=== PATIENT | female | born 1995 | race Caucasian/White ===

== ENCOUNTER 2020-07-19 14:12 | Emergency (ER) | payer OTHER ==
[2020-07-19 14:26] VITALS: BP 141/68
--- NOTE | 2020-07-19 14:58 | ED Physician Documentation ---
PD HPI UPPER EXT INJURY - Stated complaint Stated Complaint: R WRIST INJ - Chief complaint Chief Complaint: Trauma Ext - History obtained from History obtained from: Patient - Additonal information Additional information: She had a trip and fall on outstretched wrist at work just prior to arrival injuring the right wrist. No other injuries. Pain was moderate, now mild after Aleve prior to arrival. Review of Systems Constitutional: reports: Reviewed and negative Ears: reports: Reviewed and negative Cardiac: reports: Reviewed and negative Respiratory: reports: Reviewed and negative PD PAST MEDICAL HISTORY - Past Medical History Past Medical History: Yes Cardiovascular: None Respiratory: None Endocrine/Autoimmune: None GI: None PRESSER FIRST: None : None HEENT: None Psych: ADD/ADHD, Other Musculoskeletal: None Derm: None - Past Surgical History Past Surgical History: No - Present Medications Home Medications: Ambulatory Orders Medication Instructions Recorded Confirmed Control Pills 1 tab PO DAILY 05/22/16 - Allergies Allergies/Adverse Reactions: Allergies Allergy/AdvReac Type Severity Reaction Status Date / Time No Known Drug Allergies Allergy Verified 07/19/20 14:26 - Social History Does the pt smoke?: Yes Smoking Status: Current every day smoker Does the pt drink ETOH?: No Does the pt have substance abuse?: Yes - Immunizations Immunizations are current?: Yes - POLST Patient has POLST: No PD ED PE NORMAL - Vitals Vital signs reviewed: Yes - General General: Alert and oriented X 3, No acute distress - HEENT HEENT: PERRL, EOMI - Neck Neck: Supple, no meningeal sign, No bony TTP - Derm Derm: Normal color, Warm and dry - Extremities Extremities: Other (Mild tenderness to palpation about the dorsal wrist. Not the snuffbox. Maintain range of motion. No hand or elbow tenderness.) - Neuro Neuro: Alert and oriented X 3, Normal speech - Psych Psych: Normal mood, Normal affect Results - Vitals Vitals: Vital Signs - 24 hr 07/19/20 14:22 Temperature 37.1 C Heart Rate 96 Respiratory 18 Rate Blood Pressure 141/68 H O2 Saturation 97 Oxygen O2 Source Room air - Rads (name of study) 4 view x-ray of the right wrist Radiology: EMP read contemporaneously (normal) Departure - Departure Disposition: 01 Home, Self Care Clinical Impression: Right wrist sprain Qualifiers: Encounter type: initial encounter Qualified Code(s): S63.501A - Unspecified sprain of right wrist, initial encounter Condition: Good Record reviewed to determine appropriate education?: Yes Instructions: ED Sprain Wrist Comments: Continue Aleve as needed for pain, return if worse. Follow-up with your doctor in a week if not better. Forms: Activity restrictions
--- NOTE | 2020-07-19 15:17 | XRAY Report ---
PROCEDURE: Wrist 4 View RT INDICATIONS: wrist inj TECHNIQUE: 4 views of the wrist were acquired. COMPARISON: None FINDINGS: Bones: No fractures or dislocations. No suspicious bony lesions. Scaphoid view: No visualized fracture Soft tissues: No suspicious soft tissue calcifications. IMPRESSION: No visualized acute fracture or dislocation. However, occult injury cannot be excluded. Recommend zia rt interval imaging follow-up in 7-10 days as clinically indicated for additional evaluation. Reviewed by: Amina De La Paz MD on 07/19/2020 3:16 PM PDT Approved by: Amina De La Paz MD on 07/19/2020 3:16 PM PDT Station ID: [id number]
== END 2020-07-19 15:54 | disposition home or self-care (01) ==
LOC: ED 14:12
DX: S63.501A Unspecified sprain of right wrist, initial encounter (principal); W01.0XXA Fall on same level from slipping, tripping and stumbling without subsequent striking against object, initial encounter; Y99.0 Civilian activity done for income or pay; F17.200 Nicotine dependence, unspecified, uncomplicated
CPT/HCPCS: 99282; 99283

== ENCOUNTER 2022-05-02 15:55 | Outpatient (CLI) | payer OTHER ==
--- NOTE | 2022-05-02 16:40 | XRAY Report ---
PROCEDURE: Foot 3 View BILAT INDICATIONS: BILAT FOOT PAIN TECHNIQUE: 3 views of the bilateral feet COMPARISON: None. FINDINGS: No joint space narrowing, subchondral sclerosis, subchondral cystic change, or marginal osteophytosis . No periarticular erosions or lucencies. No periarticular soft tissue masses. No other features of s ignificant arthritic or degenerative process. Mild hammertoe deformities of the fourth and fifth digi ts bilaterally. No acute fracture or dislocation. No significant soft tissue abnormality. IMPRESSION: Essentially unremarkable exam with no evidence of arthritic process or significant degenerative an es. Reviewed by: Alberto Huerta MD on 05/02/2022 4:38 PM PDT Approved by: Alberto Huerta MD on 05/02/2022 4:38 PM PDT Station ID: [id number]
== END 2022-05-02 15:56 | disposition home or self-care (01) ==
LOC: DI 15:55
PROVIDERS: ATTEND Podiatrist
DX: M79.671 Pain in right foot (principal); M79.672 Pain in left foot

== ENCOUNTER 2023-06-12 12:55 | Outpatient (CLI) | payer OTHER ==
--- NOTE | 2023-06-12 13:40 | Sleep Patient Instructions ---
Sleep Center Visit Summary - Patient Visit Information Reason for Visit: Initial consult for evaluation of sleep disordered breathing and other sleep issues. - Patient Instructions Instructions Attached: Sleep Study Home Monitor Additional Instructions: You will be completing a sleep study, either an in-lab polysomnography (PSG) or home sleep study (HST). You will follow-up in the sleep care office after the sleep study is completed to hear the results and talk about therapy, if needed. You will be called by our office staff to schedule this appointment, but you may contact us with any questions. - Clinic Information Contact: [facility] [address] [place] [address] [email or web address] T: [phone]
--- NOTE | 2023-06-12 13:49 | SLEEP CARE CONSULTATION ---
Information from patient questionnaire entered by Mayra Camacho. I have reviewed and concur with the information entered by Mayra Camacho. This document represents the service I personally performed and the decisions made by me, Marli Julien ARNP. History of Present Illness Service Date and Time: 06/12/2023 1255 Reason for Visit: New patient Chief Complaint: reports: Excessive daytime sleepiness, Fatigue Date of Onset: 3YRS Usual bedtime: 10PM Time it takes to fall asleep: 30MIN Snores at night: Yes Observed to quit breathing while asleep: No Sleeps alone due to snoring: No Number of times waking at night: 2 Reasons for waking at night: reports: Snoring (when fell asleep on couch a few times), Gasping for air (one occurance), Other (UNKNOWN). denies: Choking Toss, Turn, or Twitch while sleeping: Yes Recalls having dreams: Yes ("crazy dreams", very vivid) Usually gets out of bed at: 7-8AM Feels refreshed in the morning: No Morning headache: Yes (4 days a week; last for an hour or so; drinks caffeine in AM first) Sleepy or fatigued during the day: Yes Ever fallen asleep while driving: No Takes day naps: No (usually not, but will occasionally take a nap) Dreams during day naps: Yes Prior sleep studies: No Additional HPI information: I had the pleasure of seeing LIZANDRO MACKENZIE today regarding the possibility of her having a sleep disorder. Her current complaints are excessive daytime sleepiness and fatigue. Patient states she has a 3 year old daughter. Since having her daughter she is not waking up feeling rested, is snoring and has daytime sleepiness. She gained about 80 pounds total with and afterwards. She is currently working on losing weight and has lost about 25 pounds. She states she wakes up with headaches about 4 days a week. She is sleeping an adequate amount of time but still is not feeling like she is rested. Her has sleep apnea. Her father and grandmother both have sleep apnea too and are being treated. - Parasomnia Symptoms Ever been unable to move upon waking from sleep: No Walks in sleep: No Talks in sleep: No Ever acted out dreams in sleep: No Ever felt weak in the knees when startled or emotional: Yes (has had weak feelings in knees, not connected to emotions) Bothered by creepy, crawly, restless sensations in legs: Yes (sometimes; if sitting too long leg gets tingly) Problems with memory or concentration: Yes (concentration, attention deficit dx; "zones out a lot") Subjective Initial [place] Sleepiness Scale score: 9 (06/10/23) Past Medical History Past Medical History: reports: Attention deficit Social History The patient's occupation is a [employer]. Patient is and lives in . Have you smoked in the past 12 months: No Cigarettes per day (20/pack): 20 Years of smokin Quit date: 2018 Smoking Pack Years: 3.0 Alcohol use: Yes Alcohol amount and frequency: A COUPLE DRINKS ONCE A WEEK Caffeine use: Yes Caffeine amount and frequency: 200MG EVERY MORNING Family History Family history of sleep disordered breathing: Yes Family Hx Sleep Apnea: Father: Sleep apnea - Treated, Grandparent: Sleep apnea - Treated Allergies and Home Medications Known drug allergies: No Drug allergies reviewed: Yes Home medication list reviewed: Yes (Zyrtec D; esomaprazole; MVT; melatonin for sleep) Allergy and home medication list: Allergies No Known Drug Allergies Allergy Review of Systems Weight gain over past 5 years: 80 Weight loss over past 5 years: 25 down now with diet changes/activity increase Cardiovascular: denies: high blood pressure Gastrointestinal: reports: heartburn Neurological: reports: headaches Psychiatric: reports: Attention Deficit Hyperactivity Ear/Nose/Throat: reports: wisdom teeth removed. denies: tonsillectomy Endocrine: reports: sluggishness Immunologic: reports: sneezing Physical Exam Vital signs obtained and entered by: MAYRA Jim MA Blood Pressure: 132/80 (LEFT ARM) Cuff size: regular Heart Rate: 86 O2 Saturation: 97 Height: 5 ft 8 in Weight: 257 lb Body Mass Index: 39.0 BMI Classification: Obese Neck circumference: 16.25 Mouth and throat: narrow oropharynx Soft palate: long Hard palate: normal Uvula: normal Uvula visualization: 25% Mallampati Class III Tongue: enlarged in size with teeth dixon on lateral edges Tonsils: 2+ Neck: normal w/o lymphadenopathy or thyromegaly Heart: regular rate and rhythm Lungs: clear bilaterally Impression and Plan 1. Suspected Obstructive Sleep Apnea-Hypopnea Syndrome, as suggested by a history of loud and irregular snoring, morning headache, unrefreshed sleep, cognitive impairment, and excessive daytime sleepiness. Narrow oropharynx and obesity are common predisposing factors for obstructive sleep apnea-hypopnea syndrome. I recommend proceeding to polysomnography to confirm the diagnosis and to assess severity. If the patient has significant sleep disordered breathing, a manual CPAP titration study will also be performed to find the optimal treatment pressure. I informed the patient of what the sleep studies involve and after some discussion, obtained agreement to proceed. The pathophysiology of obstructive sleep apnea-hypopnea syndrome was discussed with the patient and health risks of cardiovascular and cerebrovascular disease if not treated. Risks of drowsy driving discussed in detail and patient advised to avoid long distance driving and to lime puller at the first sign of drowsiness. Patient agreed to plan. * Schedule polysomnography. * Avoid long distance driving or driving when feeling sleepy. * Avoid alcohol, sedative and muscle relaxant around bedtime. * Attempt to lose weight. * Review instructions provided by trained office staff on how to prepare for the sleep study. * Return for follow-up after sleep study completed. Counseling Topics: Weight loss health impact Visit Type: In Office Time Spent with Patient (minutes): 30 Provider Statement: I spent 100% of the Face to Face Visit with the patient with greater than 50% spent counseling the patient and coordination of care.
[2023-06-12 14:07] VITALS: BP 132/80
== END 2023-06-12 12:56 | disposition home or self-care (01) ==
LOC: SC 12:55
PROVIDERS: ATTEND Nurse Practitioner Family
DX: G47.10 Hypersomnia, unspecified (principal); R06.83 Snoring; R51.9 Headache, unspecified; G47.8 Other sleep disorders; R41.89 Other symptoms and signs involving cognitive functions and awareness; E66.9 Obesity, unspecified; Z68.39 Body mass index [BMI] 39.0-39.9, adult; Z87.891 Personal history of nicotine dependence
CPT/HCPCS: 99203; 99212

== ENCOUNTER 2023-07-23 15:13 | Outpatient (CLI) | payer OTHER | END 2023-07-23 15:14 | disposition home or self-care (01) | LOC: SC 15:13 | PROVIDERS: ATTEND Nurse Practitioner Family | DX: G47.10 Hypersomnia, unspecified (principal); R53.83 Other fatigue; R51.9 Headache, unspecified; E66.9 Obesity, unspecified; R06.83 Snoring; G47.8 Other sleep disorders; Z68.39 Body mass index [BMI] 39.0-39.9, adult | CPT/HCPCS: 95806 ==

== ENCOUNTER 2023-09-11 15:22 | Outpatient (CLI) | payer OTHER ==
--- NOTE | 2023-09-11 15:37 | Sleep Patient Instructions ---
Sleep Center Visit Summary - Patient Visit Information Reason for Visit: Sleep Study Follow up - Patient Instructions Additional Instructions: Your sleep study today was negative for significant sleep disordered breathing. You were found to have episodes of snoring. There are different ways to control snoring including weight loss, oral devices made by a dentist or surgical options through ENT specialist. You should not use oral devices that do not fit properly because they can affect your bite. You should also check insurance coverage of oral devices for snoring because they may not be cover well. You may obtain a referral to an ENT specialist through your primary provider. Follow-up as needed. - Clinic Information Contact: [facility] [address] [place] [address] [email or web address] T: [phone]
--- NOTE | 2023-09-11 15:39 | SLEEP CARE CONSULTATION ---
Information from patient questionnaire entered by Mayra Camacho. I have reviewed and concur with the information entered by Mayra Camacho. This document represents the service I personally performed and the decisions made by , Marli Julien ARNP. History of Present Illness Service Date and Time: 09/11/2023 152 Initial [place] Sleepiness Scale score: 9 (06/10/23) Current [place] Sleepiness Scale score: 11 (09/11/23) Additional HPI information: LIZANDRO MACKENZIE returns for follow up and results of the recently performed home sleep study. The patient was informed of the following findings: No significant sleep disordered breathing with an average AHI of 1.4 and darrell oxygen saturation of 90%. I explained the pathophysiology behind obstructive sleep apnea. Patient does not have sleep apnea and was advised how weight gain could increase the risk of developing sleep apnea in the future. I strongly encouraged the patient to lose weight. Patient has light snoring. Snoring can be reduced by weight loss. Weight loss is best achieved with diet consult. Patient instructed to contact PCP for referral. Snoring can also be treated with an oral appliance from a dentist. Advised to check insurance coverage. In addition, an ENT evaluation can be do to see if other treatment is indicated. Patient counseled not drink alcohol less than 4 hours before bedtime as it can increase snoring and apnea. Patient was cautioned about risks of drowsy driving until sleepiness symptoms resolve. Patient denies drowsy driving. Sleep Study - Results Type of Sleep Study: Home sleep study (COMPLETED 07/23/23) Prior sleep studies: No Polysomnography/Home Sleep Study results: Physician Impression: The quality of the study is fair due to partial loss of airflow signal. The length of the study is adequate (> 240 minutes). Please also see the tabulated and graphic data. 1. No significant sleep disordered breathing, with an AHI of 1.4/hr and darrell SaO2 of 90%. During the study, the patient had 1 apnea (1 obstructive, 0 central, 0 mixed) and 10 hypopneas. The longest episode lasted 60.5 seconds. The patient slept adequately in supine position (supine AHI was 2.5 and non-supine, 0.63). Allergies and Home Medications Known drug allergies: No Drug allergies reviewed: Yes Home medication list reviewed: Yes (no changes) Allergy and home medication list: Allergies No Known Drug Allergies Allergy (Verified 09/10/23 11:46) Review of Systems Review of systems same as previous: Yes (NO CHANGE) Physical Exam Vital signs obtained and entered by: MAYRA Jim MA Blood Pressure: 142/90 (LEFT ARM) Cuff size: regular Heart Rate: 93 O2 Saturation: 97 Height: 5 ft 8 in Weight: 271 lb 12.8 oz Body Mass Index: 41.3 BMI Classification: Morbidly Obese Impression and Plan 1. Snoring but no significant sleep disordered breathing. Patient advised that often weight loss will reduce snoring as well as apnea risk. An oral appliance can also be used for snoring. This would require a dental consultation. Patient cautioned not to use other online appliances as can cause bite issues. Patient is advised to check if insurance will cover. An ENT consult can also be helpful to determine if any other treatment is an option. An AAS pamphlet on How to Sleep Better was given and explained to patient. 2. Obesity, unspecified. Currently patients BMI is 41.3. Obesity increases the risk of apnea, CPAP pressure requirements and overall health risks especially cardiovascular and diabetes. Thus patient is advised to lose weight. * Attempt to lose weight * Avoid alcohol consumption near bedtime * The patient is cautioned about driving until sleepiness is completely resolved. * Return as needed for follow up. Counseling Topics: Weight loss health impact Follow up with Sleep Care in: as needed Visit Type: In Office Time Spent with Patient (minutes): 10 Provider Statement: I spent 100% of the Face to Face Visit with the patient with greater than 50% spent counseling the patient and coordination of care.
[2023-09-11 15:40] VITALS: BP 142/90; O2SAT 97
== END 2023-09-11 15:23 | disposition home or self-care (01) ==
LOC: SC 15:22
PROVIDERS: ATTEND Nurse Practitioner Family
DX: R06.83 Snoring (principal); E66.01 Morbid (severe) obesity due to excess calories; Z68.41 Body mass index [BMI] 40.0-44.9, adult
CPT/HCPCS: 99212